=== PATIENT | male | born 1980 | race Two or more races ===

== ENCOUNTER 2023-09-28 18:08 | Inpatient (IN) | payer OTHER ==
[2023-09-28 20:28] VITALS: BMI 29.6
[2023-09-28] MEDS ORDERED: ONDANSETRON *ODT* 4 MG TABLET SL PRN (21:01)
[2023-09-28] MEDS ORDERED: POLYETHYLENE GLYCOL (HEALTHYLAX) 3350 17 GM PACKET PO PRN (21:01)
[2023-09-28] MEDS ORDERED: BISMUTH SUBSALICYLATE 524 MG/30 ML PO PRN (21:01)
[2023-09-28] MEDS ORDERED: LOPERAMIDE HCL 2 MG CAPSULE PO PRN (21:01)
[2023-09-28] MEDS ORDERED: MAGNESIUM HYDROX 2400MG/30ML ORAL SUSPENSION 30 ML CUP PO PRN (21:01)
[2023-09-28] MEDS ORDERED: NICOTINE POLACRILEX 2 MG GUM BUC PRN (21:01)
[2023-09-28] MEDS ORDERED: BENZONATATE 200 MG CAPSULE PO PRN (21:01)
[2023-09-28] MEDS ORDERED: ACETAMINOPHEN 325 MG TABLET (FP) PO PRN (21:01)
[2023-09-28] MEDS ORDERED: IBUPROFEN 400 MG TABLET (FP) PO PRN (21:01)
[2023-09-28] MEDS ORDERED: DICYCLOMINE HCL 10 MG CAPSULE PO PRN (21:01)
[2023-09-28] MEDS ORDERED: guaiFENesin 600 MG TABLET.ER (FP) PO PRN (21:01)
[2023-09-28] MEDS ORDERED: NICOTINE POLACRILEX 2 MG LOZENGE BC PRN (21:01)
[2023-09-28] MEDS ORDERED: BENZOCAINE/MENTHOL (CHLORASEPTIC ) LOZENGE MM PRN (21:01)
[2023-09-28] MEDS ORDERED: IBUPROFEN 600 MG TABLET (FP) PO PRN (21:01)
[2023-09-28] MEDS ORDERED: cloNIDine HCL 0.1 MG TABLET ONE (22:12)
[2023-09-28] MEDS: cloNIDine HCL 0.1 MG TABLET PO ONE (22:14)
[2023-09-28] MEDS: hydrOXYzine PAMOATE 25 MG CAPSULE (FP) PO PRN (22:40)
[2023-09-28] MEDS: MELATONIN 5 MG TABLETS PO SCH (22:40)
[2023-09-28] MEDS: METHOCARBAMOL 500 MG TABLET PO PRN (22:40)
[2023-09-28] MEDS: THIAMINE 100 MG TABLET PO SCH (22:40)
[2023-09-29] MEDS: LISINOPRIL 10 MG TABLET PO SCH (09:21)
[2023-09-29] MEDS: PRENATAL VITAMINS W/ FOLIC ACID TABLET (FP) PO SCH (09:21)
[2023-09-29] MEDS ORDERED: chlordiazePOXIDE HCL 25 MG CAPSULE PO PRN (09:52)
[2023-09-29] MEDS: chlordiazePOXIDE HCL 25 MG CAPSULE PO SCH (10:17)
[2023-09-29 11:43] LABS: HEMATOCRIT 40.4 % (35.4-49); HEMOGLOBIN 12.9 GM/dL (11.7-16.9); MCH 29.6 pg (25.7-33.7); MEAN CELL VOLUME 92.5 fl (80-96); MEAN PLT VOLUME 9.2 fl (7.5-11.1); PLATELET COUNT 201 10^3/uL (134-434); RBC 4.37 M/mm3 (4.00-5.60); RDW 12.9 % (11.9-15.9); WHITE BLOOD COUNT 4.7 K/mm3 (4.0-10.0)
[2023-09-29 11:45] LABS: CHLORIDE 104 mmol/L (98-107); SODIUM 137 mmol/L (136-145)
[2023-09-29 11:47] LABS: CALCIUM 8.8 mg/dL (8.5-10.1)
[2023-09-29 11:48] LABS: ALBUMIN 3.2 g/dl (3.4-5.0); ANION GAP 7 mmol/L (4-13); BLOOD UREA NITROGEN 7.6 mg/dL (7-18); CO2 27 mmol/L (21-32); GLUCOSE,RANDOM 185 mg/dL (74-106)
[2023-09-29 11:51] LABS: CREATININE 0.9 mg/dL (0.55-1.3); SGOT/AST 64 U/L (15-37); SGPT/ALT 101 U/L (13-61)
[2023-09-29 11:53] LABS: BILIRUBIN,TOTAL 0.8 mg/dL (0.2-1); TOT PROT 6.6 g/dl (6.4-8.2)
[2023-09-29 11:54] LABS: ALK PHOS 118 U/L (45-117)
[2023-09-29] MEDS: cloNIDine HCL 0.1 MG TABLET PO ONE (21:31)
[2023-09-30] MEDS: metFORMIN HCL 500 MG TABLET (FP) PO SCH (17:24)
[2023-10-01] MEDS: chlordiazePOXIDE HCL 25 MG CAPSULE PO SCH (05:39)
[2023-10-01 11:55] LABS: POTASSIUM 4.4 mmol/L (3.5-5.1)
[2023-10-01 11:57] LABS: CALCIUM 9.1 mg/dL (8.5-10.1)
[2023-10-01 11:59] LABS: ALBUMIN 3.4 g/dl (3.4-5.0); BLOOD UREA NITROGEN 6.6 mg/dL (7-18)
[2023-10-01 12:01] LABS: CREATININE 0.8 mg/dL (0.55-1.3)
[2023-10-01 12:02] LABS: BILIRUBIN,TOTAL 0.3 mg/dL (0.2-1)
[2023-10-01] MEDS: MAG HYDROX/AL HYDROX/SIMETH 30 ML UNIT-DOSE CUP PO PRN (17:35)
[2023-10-01] MEDS: INSULIN ASPART SLIDING SCALE (NOVOLOG) 1 VIAL SQ SCH (23:24)
[2023-10-02] MEDS ORDERED: chlordiazePOXIDE HCL 10 MG CAPSULE PO PRN
[2023-10-02] MEDS: chlordiazePOXIDE HCL 10 MG CAPSULE PO SCH (06:00)
[2023-10-02] MEDS ORDERED: INSULIN (NOVOLOG) ASPART 100 UNITS/ML 10ML VIAL ONE ×2 (17:21→23:27)
[2023-10-03] MEDS: chlordiazePOXIDE HCL 10 MG CAPSULE PO SCH (05:49)
[2023-10-03] MEDS ORDERED: INSULIN (NOVOLOG) ASPART 100 UNITS/ML 10ML VIAL ONE ×2 (17:20→22:00)
[2023-10-04] MEDS: chlordiazePOXIDE HCL 10 MG CAPSULE PO ONE (05:51)
[2023-10-04 09:16] VITALS: BP 141/97; PULSE 85; RESP 16; TEMP 97.7
== END 2023-10-04 10:00 | disposition home or self-care (01) | DRG 775 ==
LOC: YASAS 18:08 → Y6N 21:40
PROVIDERS: ADMIT Allergy & Immunology; ATTEND Surgery
PROC: HZ2ZZZZ Detoxification Services for Substance Abuse Treatment (ICD-10-PCS; principal; 2023-09-28)
DX: F10.230 Alcohol dependence with withdrawal, uncomplicated (principal); F17.210 Nicotine dependence, cigarettes, uncomplicated; I10 Essential (primary) hypertension; E11.9 Type 2 diabetes mellitus without complications; Z79.84 Long term (current) use of oral hypoglycemic drugs; R74.8 Abnormal levels of other serum enzymes; Z89.611 Acquired absence of right leg above knee; Z99.89 Dependence on other enabling machines and devices; Z56.0 Unemployment, unspecified; Z59.01 Sheltered homelessness
CPT/HCPCS: 36415; 80053; 80305; 80307; 82962; 83036; 85027; 86780; 93005; 93010